=== PATIENT | female | born 1950 | race Caucasian/White ===

== ENCOUNTER 2017-08-27 09:30 | Day surgery (SDC) | payer OTHER ==
[~2017-08-27 09:30] MED LIST: AMBIEN5 MG PO; CLONAZEPAM0.5 MG PO; GABAPENTIN400 MG PO; LOZOL PO; PAXIL10 MG/5 ML PO; SYNTHROID100 MCG PO; TOPROL XL100 M1 PO
[2017-08-27] MEDS ORDERED: FLAGYL500MG PO (14:37)
[2017-08-27] MEDS ORDERED: NAPROXEN375 MG PO (14:37)
== END 2017-08-27 19:15 | disposition home or self-care (01) ==
LOC: CIR.AMB 09:30
DX: N39.8 Other specified disorders of urinary system (principal)